=== PATIENT | male | born 1985 | race Two or more races ===

== ENCOUNTER → 2024-04-09 | Emergency (ER) | payer OTHER ==
[~2024-04-09] VITALS: Ht 180.3 cm; Wt 99.8 kg
[~2024-04-09] MED LIST: KETOROLAC TROMETHAMINE 60 MG VIAL IM ONE
[2024-04-09 15:59] VITALS: BP 148/82; O2SAT 97
[2024-04-09 17:52] LABS: HEMATOCRIT 42.6 % (39.0-48.0); HEMOGLOBIN 14.3 g/dL (13-16.00); MEAN CELL VOLUME 92.6 fL (80.0-100.00); MEAN CORPUSCULAR HEMOGLOBIN 31.1 pg (27.00-32.0); MEAN CORPUSCULAR HGB CONC 33.6 g/dl (32.0-36.0); PLATELET COUNT 264 K/uL (150-450); RED CELL DISTRIBUTION WIDTH 13.8 % (11.5-14.5)
[2024-04-09 18:25] LABS: PH,URINE 7.5 (5.0-8.0); URINE APPEARANCE Clear; URINE BILIRRUBIN Negative (NEGATIVE); URINE BLOOD Negative; URINE COLOR Yellow; URINE GLUCOSE Negative (NEGATIVE); URINE KETONE Negative (NEGATIVE); URINE LEUKOCYTE Negative; URINE NITRATE Negative; URINE PROTEIN Negative (NEGATIVE)
[2024-04-09 18:29] LABS: URINE BACTERIA 6.2 uL (0.0-1933); URINE RBC 20.3 uL (0.0-20.8)
[2024-04-09 18:30] LABS: URINE EPITHELIAL CELLS 0.2 uL (0.0-38.8); URINE WBC 0.4 uL (0.0-23.2)
== END | disposition left against medical advice (07) ==
LOC: ER 14:44
PROVIDERS: Preventive Medicine Public Health & General Preventive Medicine
DX: M54.50 Low back pain, unspecified (principal)